=== PATIENT | male | born 1955 | race Caucasian/White ===

== ENCOUNTER 2019-08-16 10:37 | Emergency (ER) | payer OTHER ==
[~2019-08-16] VITALS: Ht 180.3 cm; Wt 99.8 kg
[2019-08-16] MEDS ORDERED: AZOR 10-20 MG1 EACH (10:52)
[2019-08-16] MEDS ORDERED: GLUMETZA500 MG (10:52)
[2019-08-16] MEDS ORDERED: LIPITOR20 MG (10:53)
[2019-08-16] MEDS ORDERED: COZAAR50 MG (10:53)
[2019-08-16] MEDS ORDERED: FENOFIBRATE150 MG (10:53)
[2019-08-16] MEDS ORDERED: GLIPIZIDE XL2.5 MG (10:53)
[2019-08-16] MEDS ORDERED: METOPROLOL SUCC50 MG (10:54)
== END 2019-08-16 12:44 | disposition home or self-care (01) ==
LOC: ER 10:37
DX: H11.32 Conjunctival hemorrhage, left eye (principal)

== ENCOUNTER 2020-12-13 14:17 | Emergency (ER) | payer OTHER ==
[~2020-12-13] VITALS: Ht 182.9 cm; Wt 104.3 kg
[~2020-12-13 14:17] MED LIST: AZOR 10-20 MG1 EACH; COZAAR50 MG; FENOFIBRATE150 MG; GLIPIZIDE XL2.5 MG; GLUMETZA500 MG; LIPITOR20 MG; METOPROLOL SUCC50 MG
== END 2020-12-13 16:02 ==
LOC: ER 14:17
DX: H53.8 Other visual disturbances (principal)

== ENCOUNTER 2024-01-21 11:40 | Emergency (ER) | payer OTHER ==
[~2024-01-21] VITALS: Ht 182.9 cm; Wt 106.6 kg
[2024-01-21 13:30] LABS: HEMATOCRIT 37.8 % (39.0-48.0); HEMOGLOBIN 12.8 g/dL (13-16.00); MEAN CELL VOLUME 86.3 fL (80.0-100.00); MEAN CORPUSCULAR HEMOGLOBIN 29.3 pg (27.00-32.0); MEAN CORPUSCULAR HGB CONC 33.9 g/dl (32.0-36.0); PLATELET COUNT 263 K/uL (150-450); RED BLOOD COUNT 4.38 M/uL (4.00-6.00); RED CELL DISTRIBUTION WIDTH 14.1 % (11.5-14.5)
[2024-01-21 13:33] LABS: URINE APPEARANCE Clear; URINE BILIRRUBIN Negative (NEGATIVE); URINE BLOOD Negative; URINE COLOR Yellow; URINE LEUKOCYTE Moderate; URINE NITRATE Positive; URINE PROTEIN 30 (NEGATIVE)
[2024-01-21 13:36] LABS: URINE BACTERIA 9246.6 uL (0.0-1933); URINE EPITHELIAL CELLS 21.3 uL (0.0-38.8); URINE RBC 3.3 uL (0.0-20.8); URINE WBC 340.7 uL (0.0-23.2)
[2024-01-21 13:38] LABS: URINE GLUCOSE 100 MG/DL (NEGATIVE)
[2024-01-21 13:57] LABS: ALBUMIN 3.7 gm/dL (3.4-5.0); BILIRUBIN TOTAL 0.38 mg/dL (0.3-1.2); CALCIUM 9.1 mg/dL (8.5-10.1); CREATININE SERUM 0.94 mg/dL (0.70-1.30); GFR 79.57; GLOBULINA 4.6 G/DL (2.4-3.5); POTASSIUM 4.53 mEq/L (3.5-5.1); TOTAL PROTEIN 8.3 gm/dL (6.4-8.2)
[2024-01-21] MEDS ORDERED: CEFTRIAXONE SODIUM 1,000 MG VIAL IM ONE (14:30)
[2024-01-21] MEDS ORDERED: BACTRIM DS TAB1 EACH PO (14:31)
== END 2024-01-21 14:38 | disposition home or self-care (01) ==
LOC: ER
PROVIDERS: General Practice
DX: R10.31 Right lower quadrant pain (principal); R10.9 Unspecified abdominal pain; I10 Essential (primary) hypertension; E11.9 Type 2 diabetes mellitus without complications; Z79.84 Long term (current) use of oral hypoglycemic drugs
CPT/HCPCS: 36415; 74176; 96372; 99284; J0696